=== PATIENT | female | born 2000 | race Two or more races ===

== ENCOUNTER 2022-11-23 21:06 | Emergency (ER) | payer MEDICAID ==
[~2022-11-23] VITALS: Ht 162.6 cm; Wt 80.4 kg
[2022-11-23 21:40] VITALS: BP 112/58
== END 2022-11-24 02:09 | disposition left against medical advice (07) ==
LOC: ER 21:06
DX: R51.9 Headache, unspecified (principal); Z53.21 Procedure and treatment not carried out due to patient leaving prior to being seen by health care provider